=== PATIENT | female | born 1985 | race Hispanic/Latino ===

== ENCOUNTER 2019-01-08 20:04 | Emergency (ER) | payer SELFPAY ==
--- OUTSIDE RECORDS SUMMARY | 2019-01-08 20:07 | XMS REPORT ---
Author Author Admin, Mission [employer] [facility] [employer] VICE PRESIDENT Address [address] [address] Phone Allergies, Adverse Reactions, Alerts Allergy Name Reaction Description Start Date Severity Status Provider No Known Allergies Tamiko Cao MANAGER MEDICAL Conditions or Problems Problem Name Problem Code Onset Date Status Entry Date Provider Comment Standard Description Annotate Lipid screening V78.8 Active Deng Garza MD Screening for other disorders of blood and blood-forming organs Screening, diabetes mellitus V77.1 Active Deng Garza MD Screening for diabetes mellitus Adenomyosis 617.0 Active Deng Garza MD Endometriosis of uterus Anemia 285.9 Active Deng Garza MD Anemia, unspecified Enlarged uterus 621.2 Active Deng Garza MD Hypertrophy of uterus Obesity Active Deng Garza MD Obesity, unspecified Screening cervical malignancy V76.2 Active Deng Garza MD Screening for malignant neoplasms of the cervix Screening visit for sexually trans dis V74.5 Active Deng Garza MD Screening examination for venereal disease Uterine fibroids 218.9 Active Deng Garza MD Leiomyoma of uterus, unspecified Well woman exam V72.3 Active Deng Garza MD Special investigations and examinations - Gynecological examination Medication List Medication Instructions Start Date Stop Date Generic Name NDC Status Provider Patient Instruction IROSPAN 24/6 ORAL 1 tablet by mouth daily FE-SUCC AC-B [id number] Active Deng Garza MD Active Vital Signs Date Name Value Unit Range Description blood pressure, diastolic 75 mm[Hg] BP cuenca blood pressure, systolic 116 mm[Hg] BP sys height E&M 59 [in_us] Bdy height pulse rate E&M 69 /min Heart rate respiratory rate E&M 17 /min Resp rate temperature E&M 98 [degF] Body temperature weight E&M 154 [lb_av] Weight Measured Diagnostic Results Date Name Value Unit Range Description Lab Report: CBC With Differential/Platelet, Comp. Metabolic Panel (14), ... - Serology hepatitis C antibody, serum <0.1 0.0-0.9 Office Visit: Annual / Family Planning Female/S12 - Urinalysis pH, urine, semiquantitative 5.0 Lab Report: CBC With Differential/Platelet, Comp. Metabolic Panel (14), ... - Hematology lymphocyte count, blood, automated 1.7 X10E3/UL 10*3/mm3 0.7-3.1 Office Visit: Annual / Family Planning Female/S12 - Urinalysis bilirubin, urine negative Lab Report: CBC With Differential/Platelet, Comp. Metabolic Panel (14), ... - Chemistry urea nitrogen, blood 12 mg/dL 6-20 creatinine, serum 0.70 mg/dL 0.57-1.00 chloride, serum 103 mmol/L 96-106 Lab Report: CBC With Differential/Platelet, Comp. Metabolic Panel (14), ... - Hematology mean corpuscular volume, RBC 76 fL 79-97 Lab Report: CBC With Differential/Platelet, Comp. Metabolic Panel (14), ... - Chemistry triglyceride, serum, fasting 59 mg/dL 0-149 Lab Report: CBC With Differential/Platelet, Comp. Metabolic Panel (14), ... - Hematology erythrocyte (RBC) count 3.94 X10E6/UL 10*6/mm3 3.77-5.28 Lab Report: CBC With Differential/Platelet, Comp. Metabolic Panel (14), ... - Chemistry Estimated Glomerular Filtration Rate (calc) 113 mL/min/1.73m2 >59 Office Visit: Annual / Family Planning Female/S12 - Urinalysis appearance, urine clear Lab Report: CBC With Differential/Platelet, Comp. Metabolic Panel (14), ... - Hematology platelet count 291 X10E3/UL 10*3/mm3 330-552 8498/11/15 red blood cell distribution width 16.0 % 12.3-15.4 Lab Report: CBC With Differential/Platelet, Comp. Metabolic Panel (14), ... - Chemistry protein, total, serum 7.5 g/dL 6.0-8.5 HDL cholesterol, serum 56 mg/dL >39 Office Visit: Annual / Family Planning Female/S12 - Urinalysis glucose, urine, semiquantitative negative Lab Report: CBC With Differential/Platelet, Comp. Metabolic Panel (14), ... - Chemistry albumin/globulin ratio, serum 1.6 1.2-2.2 Lab Report: CBC With Differential/Platelet, Comp. Metabolic Panel (14), ... - Hematology eosinophils as percent of blood leukocytes 2 % Not Estab. Lab Report: CBC With Differential/Platelet, Comp. Metabolic Panel (14), ... - Chemistry Absolute Neutrophils 3.0 X10E3/UL 10*3/uL 1.4-7.0 Lab Report: CBC With Differential/Platelet, Comp. Metabolic Panel (14), ... - Hematology basophil count, absolute 0.0 x10E3/uL 0.0-0.2 Lab Report: CBC With Differential/Platelet, Comp. Metabolic Panel (14), ... - Chemistry hepatitis B surface antigen Negative Negative alanine aminotransferase (SGPT), serum 14 U/L 0-32 LDL cholesterol, serum 81 mg/dL 0-99 Office Visit: Annual / Family Planning Female/S12 - Urinalysis nitrite, urine, semiquantitative negative Lab Report: CBC With Differential/Platelet, Comp. Metabolic Panel (14), ... - Hematology monocytes as percent of blood leukocytes 7 % Not Estab. Lab Report: CBC With Differential/Platelet, Comp. Metabolic Panel (14), ... - Chemistry cholesterol, serum 149 mg/dL 100-199 Lab Report: CBC With Differential/Platelet, Comp. Metabolic Panel (14), ... - Hematology mean corpuscular hemoglobin concentration, RBC 31.7 G/DL % 31.5-35.7 Office Visit: Annual / Family Planning Female/S12 - Urinalysis leukocyte esterase, urine, by dipstick negative Lab Report: CBC With Differential/Platelet, Comp. Metabolic Panel (14), ... - Hematology hemoglobin, blood 9.5 g/dL 11.1-15.9 leukocyte count, blood 5.2 X10E3/UL 10*3/mm3 3.4-10.8 Office Visit: Annual / Family Planning Female/S12 - Urinalysis protein, urine, semiquantitative (dipstick) negative Lab Report: CBC With Differential/Platelet, Comp. Metabolic Panel (14), ... - Hematology hematocrit, blood 30.0 % 34.0-46.6 Lab Report: CBC With Differential/Platelet, Comp. Metabolic Panel (14), ... - Chemistry globulin, serum 2.9 1.5-4.5 albumin, serum 4.6 g/dL 3.5-5.5 very low density lipoproteins 12 mg/dL 5-40 Office Visit: Annual / Family Planning Female/S12 - Urinalysis urobilinogen, urine, semiquantitative (dipstick) negative Lab Report: CBC With Differential/Platelet, Comp. Metabolic Panel (14), ... - Chemistry calcium, serum 9.2 mg/dL 8.7-10.2 Lab Report: CBC With Differential/Platelet, Comp. Metabolic Panel (14), ... - Hematology basophils as percent of blood leukocytes 0 % Not Estab. monocyte count, blood, automated 0.4 X10E3/UL 10*3/uL 0.1-0.9 Lab Report: CBC With Differential/Platelet, Comp. Metabolic Panel (14), ... - Chemistry immature granulocytes, percentage of total cells, blood 1 % Not Estab. urea nitrogen/creatinine ratio, serum 17 9-23 Lab Report: CBC With Differential/Platelet, Comp. Metabolic Panel (14), ... - Genetics/fertility eGFR if 131 mL/min/1.73m2 >59 Lab Report: CBC With Differential/Platelet, Comp. Metabolic Panel (14), ... - Hematology lymphocytes as percent of blood leukocytes 33 % Not Estab. Lab Report: CBC With Differential/Platelet, Comp. Metabolic Panel (14), ... - Chemistry carbon dioxide, venous blood 24 mmol/L 18-29 Lab Report: CBC With Differential/Platelet, Comp. Metabolic Panel (14), ... - Serology rapid plasma reagin antibody, serum Non Reactive Non Reactive Lab Report: Ct, Ng, Trich vag by SHEREE - Lab chlamydia DNA probe Negative Negative Lab Report: Ct, Ng, Trich vag by SHEREE - Microbiology Neisseria gonorrhoeae DNA probe Negative Negative Lab Report: CBC With Differential/Platelet, Comp. Metabolic Panel (14), ... - Chemistry sodium, serum 141 mmol/L 436-603 1973/11/15 hemoglobin A1C, blood, as % of total hemoglobin 5.6 % 4.8-5.6 Office Visit: Annual / Family Planning Female/S12 - Chemistry beta HCG, urine, semiquantitative negative Lab Report: CBC With Differential/Platelet, Comp. Metabolic Panel (14), ... - Chemistry alkaline phosphatase, serum 55 U/L 39-117 Office Visit: Annual / Family Planning Female/S12 - Urinalysis ketones, urine, by test strip negative Lab Report: CBC With Differential/Platelet, Comp. Metabolic Panel (14), ... - Hematology Eosinophil Absolute Count 0.1 X10E3/UL 10*3/uL 0.0-0.4 Office Visit: Annual / Family Planning Female/S12 - Urinalysis specific gravity, urine 1.015 Lab Report: CBC With Differential/Platelet, Comp. Metabolic Panel (14), ... - Hematology mean corpuscular hemoglobin, RBC 24.1 pg 26.6-33.0 Lab Report: CBC With Differential/Platelet, Comp. Metabolic Panel (14), ... - Chemistry bilirubin, serum, total 0.4 mg/dL 0.0-1.2 Lab Report: CBC With Differential/Platelet, Comp. Metabolic Panel (14), ... - Hematology neutrophils as percent of blood leukocytes 57 % Not Estab. Office Visit: Annual / Family Planning Female/S12 - Urinalysis blood in urine (hemoglobin) by dipstick negative Lab Report: CBC With Differential/Platelet, Comp. Metabolic Panel (14), ... - Chemistry blood glucose, random 97 mg/dL 65-99 potassium, serum 4.3 mmol/L 3.5-5.2 aspartate aminotransferase (SGOT), serum 18 U/L 0-40 Office Visit: Annual / Family Planning Female/S12 - Urinalysis urine color yellow Encounters Date Encounter Provider Code Facility 11:51:28 CDT Est Patient Exp Problem - [id number] Deng Garza MD [id number] [facility] MARKETING SERVICES VICE PRESIDENT Procedures Code Procedure Name Date Entry Date Standard Description CPT-45719 Est Patient Well Exam (18 - 39 Yrs) - 89310 08:41:44 MANAGER OF PLANNING CPT-99548 New Patient Well Exam (18 - 39 Yrs) - 60749 09:50:06 CDT
== END 2019-01-08 21:55 | disposition short-term general hospital (02) ==
LOC: ER 20:04
DX: R51 Headache (principal)

== ENCOUNTER 2024-07-20 06:43 | Emergency (ER) | payer OTHER ==
[~2024-07-20] VITALS: Ht 149.9 cm; Wt 71.7 kg
[2024-07-20 06:58] VITALS: TEMP 98.3
[2024-07-20] MEDS ORDERED: IOPAMIDOL 370 MG/ML 100 ML INFUS..BTL INJ ONE (07:25)
[2024-07-20 07:27] LABS: BASOPHILS % 0.3 % (0.0-1.0); EOSINOPHILS # (AUTO) 0.1 (0.0-0.4); EOSINOPHILS % 1.5 % (0.0-6.0); HEMATOCRIT 35.9 % (34.2-44.1); LYMPHOCYTES # (AUTO) 1.7 (1.0-3.2); LYMPHOCYTES % 17.5 % (18.0-39.1); MEAN CORPUSCULAR HEMOGLOBIN 30.6 pg (28-32); MEAN CORPUSCULAR HGB CONC 33.4 g/dL (31-35); MEAN CORPUSCULAR VOLUME 91.6 fL (81-99); MONOCYTES # (AUTO) 0.6 (0.2-0.8); MONOCYTES % 6.8 % (4.4-11.3); NEUTROPHILS # (AUTO) 6.9 (2.1-6.9); NEUTROPHILS % 73.3 % (38.7-80.0); PLATELET COUNT 200 x10e3/uL (140-360); RED BLOOD COUNT 3.92 x10e6/uL (3.6-5.1); RED CELL DISTRIBUTION WIDTH 12.2 % (11.7-14.4); WHITE BLOOD COUNT 9.44 x10e3/uL (4.8-10.8)
[2024-07-20 07:51] LABS: INR 0.97; PROTHROMBIN TIME 13.4 seconds (11.9-14.5)
[2024-07-20 07:52] LABS: PARTIAL THROMBOPLASTIN TIME 33.5 seconds (23.8-35.5)
[2024-07-20] MEDS: SODIUM CHLORIDE 0.9% 1000ML 1,000 ML IV STA (07:54)
[2024-07-20] MEDS: KETOROLAC TROMETHAMINE 30 MG/ML VIAL IV ONE (07:55)
[2024-07-20] MEDS: ONDANSETRON HCL INJ 2MG/ML 2ML 2 MG/ML VIAL IV STA (07:55)
[2024-07-20 07:57] LABS: BILIRUBIN,URINE NEGATIVE (NEGATIVE); CLARITY,URINE CLEAR (CLEAR); COLOR,URINE YELLOW (YELLOW); GLUCOSE, URINE NEGATIVE (NEGATIVE); KETONES,URINE NEGATIVE (NEGATIVE); LEUKOCYTE ESTERASE ,URINE NEGATIVE (NEGATIVE); NITRITE,URINE NEGATIVE (NEGATIVE); PH,URINE 6 (5 - 7); PROTEIN,URINE DIPSTICK TRACE (NEGATIVE); URINE UROBILINOGEN 0.2 mg/dL (0.2 - 1)
[2024-07-20 08:01] LABS: ALBUMIN 3.7 g/dL (3.5-5.0); ANION GAP 10.6 mmol/L (8-16); BILIRUBIN,TOTAL 0.8 mg/dL (0.2-1.2); CALCIUM 8.8 mg/dL (8.4-10.2); CREATININE, SERUM 0.74 mg/dL (0.57-1.11); MAGNESIUM 1.9 MG/DL (1.3-2.1); POTASSIUM 3.6 mmol/L (3.5-5.1); TOTAL PROTEIN 7.3 g/dL (6.5-8.1)
[2024-07-20 08:11] LABS: EPITHELIAL CELLS,URINE MODERATE /LPF
[2024-07-20 08:12] LABS: BACTERIA,URINE MODERATE /HPF
[2024-07-20] MEDS ORDERED: DICYCLOMINE HCL20 MG PO (08:56)
[2024-07-20] MEDS ORDERED: AMOX TR-K CLV1 EAC2 PO (08:56)
[2024-07-20 09:30] VITALS: PULSE 57; RESP 15; O2SAT 100
== END 2024-07-20 09:41 | disposition home or self-care (01) ==
LOC: ER 06:46
DX: R10.32 Left lower quadrant pain (principal); K57.32 Diverticulitis of large intestine without perforation or abscess without bleeding
CPT/HCPCS: 36415; 74177; 80053; 81001; 83735; 85025; 85610; 85730; 99284; J1885; J2405; J7030; Q9967